=== PATIENT | female | born 1965 | race Caucasian/White ===

== ENCOUNTER → 2018-07-12 | Outpatient (CLI) | payer BC ==
--- NOTE | 2018-07-15 10:02 | PCVCIMAG ---
APPROVED REPORT Study performed: 07/12/2018 14:32:09 EXAM: Comprehensive 2D, Doppler, and color-flow Echocardiogram Patient Location: Echo lab Room #: 2Status: routine BSA: 1.90 HR: 61 bpmBP: 110/82 mmHg Rhythm: NSR Other Information Study Quality: Good Risk Factors: Cardiac Risk Factors: HTN, FHX of CAD Indications Pulmonary Hypertension Hypertension/HDD Pulmonic Valvotomy for pulmonic stenosis 2003 2D Dimensions LV Single Plane 4CH: 52.27 % LV Single Plane 2CH: 63.31 % Biplane EF: 58.9 % Volumes Left Atrial Volume (Systole) Single Plane 4CH: 44.19 mLSingle Plane 2CH: 40.89 mL Biplane LA Volume: 44.00 mLLA ESV Index: 23.00 mL/m2 Aortic Valve AoV Peak Gurwinder.: 1.51 m/s AO Peak Gr.: 9.12 mmHgLVOT Max P.12 mmHg LVOT Max V: 1.43 m/s Mitral Valve E/A Ratio: 1.1 MV Decel. Time: 264.19 ms MV E Max Gurwinder.: 1.17 m/s MV A Gurwinder.: 1.07 m/s IVRT: 86.51 ms TDI E/Lateral E': 11.70E/Medial E': 14.63 Medial E' Gurwinder.: 0.08 m/s Lateral E' Gurwinder.: 0.10 m/s Pulmonary Valve PV Peak Gurwinder.: 1.91 m/sPV Peak Gr.: 14.65 mmHg Pulmonary Vein P Vein S: 0.51 m/sP Vein A: 0.33 m/s P Vein D: 0.59 m/sP Vein A Dur.: 107.3 msec P Vein S/D Ratio: 0.86 Tricuspid Valve TR Peak Gurwinder.: 2.76 m/s TR Peak Gr.: 30.52 mmHg TV Vmax: 1.01 m/sPA Pressure: 39.00 mmHg Left Ventricle The left ventricle is normal size. There is normal LV segmental wall motion. There is normal left ventricular wall thickness. Left ventricular systolic function is normal. The left ventricular ejection fraction is within the normal range. LVEF is 55-60%. The left ventricular diastolic function is normal. Right Ventricle Right ventricle is mildly dilated. The right ventricular systolic function is normal. Atria The left atrium size is normal. Right atrium is mildly dilated. Aortic Valve Aortic valve is trileaflet. The Aortic valve is mildly sclerotic. No aortic regurgitation is present. There is no aortic valvular stenosis. Mitral Valve Mitral valve leaflets are mildly sclerotic with normal excursion. There is no mitral valve regurgitation noted. No evidence of mitral valve stenosis. Tricuspid Valve The tricuspid valve is normal in structure. Mild tricuspid regurgitation with a PA pressure of 38-41 mmHg Mild pulmonary hypertension.. Pulmonic Valve Pulmonic valve is not well visualized. There is mild sclerosis seen Moderate pulmonic regurgitation. Great Vessels The aortic root is normal in size. The ascending aorta is normal in size. Aortic arch is normal in caliber. IVC is not well visualized. Pericardium There is no pericardial effusion. There is no pleural effusion. <Conclusion> The left ventricle is normal size. There is normal left ventricular wall thickness. Left ventricular systolic function is normal. Right ventricle is mildly dilated. The left atrium size is normal. Right atrium is mildly dilated. There is no aortic valvular stenosis. There is no mitral valve regurgitation noted. Mild tricuspid regurgitation with a PA pressure of 38-41 mmHg Pulmonic valve is not well visualized. There is mild sclerosis seen Moderate pulmonic regurgitation.
--- NOTE | 2018-07-15 10:57 | PCVCIMAG ---
APPROVED REPORT Study performed: 07/12/2018 15:20:17 Exam: Stress Echocardiogram Indication: CAD , Hypertension, Dyspnea Patient Location: Echo lab Stress Nurse: Noemi Christy RN Room #: 2 Status: routine Ht: 5 ft 2 in HR: 63 bpm BP: 110/82 mmHg Rhythm: NSR Medical History Medical History: Pulmonic valvotomy,htn, family hx CAD Cardiac Risk Factors: HTN Previous Cardiac Procedures: pulmonic valvotomy Pretest Chest Pain Characteristics: No chest pain Exercise History: Sedentary Procedure The patient underwent an Exercise Stress Test using the Gertrudis Protocol. Blood pressure, heart rate, and EKG were monitored. An Echocardiogram was performed by radiation protection technician in four stages in quad fashion. At peak stress, four selected images were obtained and placed side by side with resting images for comparison. Stress Test Details Stress Test: Exercise stress testing was performed using a Gertrudis protocol. HR Resting HR: 73 bpmMax Heart Rate (APMHR): 170 bpm Max HR Achieved: 176 bpmTarget HR (85% APMHR): 144 bpm % of APMHR: 103 Recovery HR: 82 bpm HR response to stress: Normal HR response to stress BP Resting BP: 110/82 mmHg Max BP: 210/96 mmHg Recovery BP: 150/80 mmHg ECG Resting ECG: Sinus Rhythm Stress ECG: Sinus Rhythm ST Change: Horizontal ST depression Maximum ST Deviation: 1.5 mm Arrhythmia: Rare PVCs Recovery ECG: Sinus Rhythm, NSSTT changes Recovery ST Change: Downsloping ST depression Recovery Arrhythmia: None Clinical Reason for Termination: Maximal effort Stress Symptoms: none Exercise duration: 8 min 16 sec Highest Stage Achieved: Stage 3: 3.4 mph at 14% grade. Exercise capacity: 10.4 METs Overall Exercise Capacity for Age: Average Angina Score: None No complications. Stress ECG Conclusion The patient exercised according to the GERTRUDIS protocol for 8:16 mins; achieving a work level of 10.4 METS. The resting heart rate of 62 bpm germain to a maximum heart rate of 176 bpm. This value represent 103% of the maximal, age-predicted heart rate. The resting blood pressure of 110/82 mmHg, germain to a maximum blood pressure of 210/96 mmHg. The exercise test was stopped due to fatigue. Ambriz Treadmill Score is 0.5 which is Moderate risk. Pre-Stress Echo The resting Echocardiogram showed normal left ventricular contractility with an estimated Ejection Fraction of about 55-60%. Normal wall motion in all segments on baseline images. Post-Stress Echo The stress Echocardiogram showed normal left ventricular contractility with an estimated Ejection Fraction of about 65-70%. Normal augmentation of wall motion in all segments on post stress images. Clinical No clinical evidence for ischemia. Conclusion Clinical Response: Non-ischemic Exercise Capacity: Average Stress ECG Response: Equivocal Stress Echo Images: Non-ischemic No echocardiographic evidence for exercise induced ischemia. No prior study available for comparison. <Conclusion> No echocardiographic evidence for exercise induced ischemia.
== END | disposition home or self-care (01) ==
LOC: PCVCIMAG 15:50
PROVIDERS: ATTEND Internal Medicine Cardiovascular Disease
DX: I07.1 Rheumatic tricuspid insufficiency (principal); I10 Essential (primary) hypertension; I25.10 Atherosclerotic heart disease of native coronary artery without angina pectoris; R06.09 Other forms of dyspnea
CPT/HCPCS: 93306; 93351